=== PATIENT | female | born 1975 | race Caucasian/White ===

== ENCOUNTER 2016-07-12 12:28 | Emergency (ER) | payer OTHER ==
--- NOTE | 2016-07-12 14:30 | ED ORDER SUMMARY ---
..... Patient: SASHA HAWTHORNE OrderSheet [facility] VisitID: [id number] [address] [place] [address] 40y, F Registration Date/Time: 07/12/2016 ORDER SHEET Weight: 83.9 kg (stated) Allergies: Sulfa Antibiotics, Minocycline GENERAL ORDERS: CBC w Diff Urgent (13:11 07/12/2016 Alberto Khan) (13:17 KKnebel R.N.) CMP Urgent (13:07/12/2016 Alberto Khan) (13:17 KKnebel R.N.) UA-Culture if indicated Urgent (13:11 07/12/2016 Alberto Khan) (13:17 DAPHNIEnejackelyn R.N.) Lipase Urgent (13:07/12/2016 Alberto Khan) (13:17 KKnebel R.N.) Pulse oximeter (13:07/12/2016 Alberto Khan) (13:36 KKnebel R.N.) MEDICATION ORDERS: GI Cocktail WHITE PO 30 mL (NOW) (13:57 07/12/2016 Alberto Khan) (14:02 KKnebel R.N.) IV FLUIDS: IV NS : initial bolus 1000 mL (1000 mL/hr), then none - for X1 (NOW) (13:11 07/12/2016 Alberto Khan) (13:44 LWhalen R.N.) ORDER SHEET NOTES: [Electronically signed by Ale Navarrete R.N. (15:31 07/12/2016)] [Electronically signed by Ja Flores Dr. (13:23 07/19/2016)] [Electronically locked/signed by Ale Navarrete R.N. (15:31 07/12/2016)]
--- NOTE | 2016-07-12 14:30 | ED NURSING NOTES ---
Clinical Report - Nurses [facility] [address] [place] [address] 07/12/2016 12:29 Patient: SASHA HAWTHORNE TRIAGE Triage time 12:38 Jul 12 2016. Acuity: LEVEL 3. Chief Complaint: ABDOMINAL PAIN. Alert. No acute distress. SEPSIS SCREEN: Sepsis Screen. Negative (no infection suspected/documented). ELISHA COMA SCORE: [place] Coma Scale: 15- eyes open spontaneously (4); best verbal response- oriented x 4 (5); best motor response- obeys commands (6). --12:44 Ale Navarrete R.N. 12:38 07/12/16. BP: 125/79. HR: 83. RR: 14. O2 saturation: 97%. Temp: 97.5 F. Pain level now: 10. --12:44 Ale Navarrete R.N. 12:38 07/12/16. HR: 83. --13:29 Ale Navarrete R.N. Weight: 83.9 kg stated. Height/Length: 67 inches Per Patient. BMI: 29. --12:42 Ale Navarrete R.N. Medications Proton pump inhibitor. --12:39 Ale Navarrete R.N. Zofran ODT Oral. --12:40 Ale Navarrete R.N. Allergies Sulfa Antibiotics. --12:40 Ale Navarrete R.N. Minocycline. --12:40 Ale Navarrete R.N. History Arrived by private vehicle. Historian: patient. Accompanied by family. This started just prior to arrival. She has had nausea and vomiting. Last oral intake by patient was (about 10 AM). 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 PAST MEDICAL HX: Immunizations: up-to-date. Last normal menstrual period was 1 week ago. Denies current . SOCIAL HX: Never smoker. Occasional alcohol use. No drug use. No recent travel. No infectious disease exposure. No known contact with a sick individual. SELF HARM ASSESSMENT: A self harm assessment was performed. The patient answered "no" to the question "Do you have thoughts of harming or killing yourself?". FALL RISK ASSESSMENT: Fall risk assessment completed. No fall risk identified. NUTRITIONAL RISK ASSESSMENT: The nutritional risk assessment revealed no deficiencies. FUNCTIONAL ASSESSMENT: Functional assessment: no impairments noted. LEARNING NEEDS ASSESSMENT: The learning needs assessment revealed no barriers. ABUSE ASSESSMENT: Abuse assessment: The patient was asked "Do you feel safe in your home?". SKIN INTEGRITY ASSESSMENT: Skin integrity risk assessment completed. No skin integrity risk identified. --12:44 Ale Navarrete R.N. Last oral intake by patient was breakfast. --13:29 Ale Navarrete R.N. PROBLEMS: Abdominal Pain. Vomiting. Gastroesophageal Reflux Disease. Tetanus Status. Laceration. LNMP - Last Normal Menstrual Period. --12:41 Ale Navarrete R.N. ADDITIONAL SURGERIES: Cholecystectomy. . Dilatation & Curettage. Laparoscopy. Faye Fundoplasty. --12:41 Ale Navarrete R.N. Interventions ID and allergy band on patient. To room. --12:44 Ale Navarrete R.N. PHYSICAL ASSESSMENT GENERAL / NEURO / PSYCH: Alert. Oriented X 4. Appears in pain. RESPIRATORY: Respirations not labored. CVS: Capillary refill less than 2 seconds. GI / : Abdomen soft. Abdominal tenderness in the upper abdomen. SKIN: Skin is warm and dry. --12:45 Ale Navarrete R.N. NURSING PROGRESS NOTES Patient gowned. Head of bed elevated. Two patient identifiers checked. Call light placed in reach. Side rails up x 1. Bed placed in lowest position. Brakes of bed on. Patient ready for evaluation- chart flagged. --12:45 Ale Navarrete R.N. 13:01 07/12/2016 Site #1 started via IV in the right antecubital space with an 20g angiocath, with aseptic technique and good blood return; one attempt. Blood drawn: rainbow set. Labeled in the presence of the patient and sent to the lab. Saline lock flushed with 10 mL saline. --13:11 Ale Navarrete R.N. Patient ID band checked for patient name and birthdate: patient confirmed. Instructions provided to collect clean catch urine and patient verbalized understanding. Clean catch urine collected with return of yellow-colored clear urine; sample sent to lab for urinalysis, culture and HCG. Specimen labeled in the presence of the patient. --13:12 Ale Navarrete R.N. 13:39 07/12/2016 Started bag #1 1000 mL IV Fluids IV NS (Saline); at 1000 mL/hr over 1 hour(s) via site #1 via dial-a-flow. Allergies verified and confirmed 5 rights. IV patency established. IV site checked: no pain, redness, or swelling. IV flushed thoroughly pre- and post-medication administration. --13:44 Anabell Weber R.N. 14:02 07/12/2016 GI Cocktail (Magnesium-Aluminum) PO. Allergies verified and confirmed 5 rights. --14:02 Ale Navarrete R.N. DISPOSITION / DISCHARGE 14:49 07/12/2016 Site #1 removed upon discharge. Bandage applied. --14:50 Ale Navarrete R.N. 14:49 07/12/16. BP: 128/80. HR: 75. RR: 12. O2 saturation: 99%. Pain level now: 05/03. --14:50 Ale Navarrete R.N. Departure time: 15:Jul 12 2016. Condition at departure: improved. No learning barriers present. Discharge instructions provided and reviewed with the patient. Reviewed referral to a cold mill inspector. Patient verbalized understanding. Written instructions provided in Swedish. The patient was discharged home and accompanied by spouse. She left the Emergency Department ambulatory and via private vehicle. Spouse driving. --15:31 Ale Navarrete R.N. Locked/Released at 07/12/2016 15:31 by Ale Navarrete R.N.
--- NOTE | 2016-07-12 14:30 | ED CLINICAL REPORT ---
Clinical Report - Physicians/Mid Levels [facility] [address] [place] [address] 07/12/2016 12:29 Patient: SASHA HAWTHORNE Time Seen: 1301. Arrived- By private vehicle. Historian- patient. HISTORY OF PRESENT ILLNESS Chief Complaint: ABDOMINAL PAIN. At its maximum, severity described as moderate. When seen in the E.D., severity described as mild. It is described as burning. No radiation. It is described as located in the epigastric area. This started past week and is still present but is improving. It was gradual in onset and has been intermittent and waxing/waning but is not gone now. The patient has had nausea and vomiting. No loss of appetite or diarrhea. No additional abdominal pain. No recent travel. Similar symptoms previously: Recent medical care: Not recently seen/assessed. REVIEW OF SYSTEMS No constipation, black stools, hematemesis, bloody stools or fever. No chest pain or difficulty breathing. All systems otherwise negative, except as recorded above. PAST HISTORY See nurses notes. SOCIAL HISTORY Never smoker. Occasional alcohol use. (non recently). No drug use. No recent travel. Is a local resident. FAMILY HISTORY No family history of gall bladder problems. ADDITIONAL NOTES The nursing notes have been reviewed. PHYSICAL EXAM Vital Signs: 07/12/2016 12:38 BP: 125/79. HR: 83. RR: 14. O2 saturation: 97%. Temp: 97.5 F. Pain level now: 510. 07/12/2016 12:38 HR: 83. Blood pressure normal. Oxygen saturation normal. Appearance: Alert. Oriented X3. No acute distress. (pleasant, cooperative, polite). Eyes: Pupils equal, round and reactive to light. Eyes normal inspection. No scleral icterus or pale conjunctivae. ENT: Ears normal. Nose normal. Pharynx normal. Neck: Normal inspection. Neck supple. CVS: Normal heart rate and rhythm. Heart sounds normal. Pulses normal. Respiratory: No respiratory distress. Breath sounds normal. Chest nontender. No rales, rhonchi or wheezes. Abdomen: Soft and nontender. Bowel sounds normal. Skin: Skin warm and dry. Normal skin color. No rash. Normal skin turgor. (no jaundince). Extremities: Extremities exhibit normal ROM. No lower extremity edema. Neuro: Oriented X 3. No motor deficit. No sensory deficit. LABS, X-RAYS, AND EKG Laboratory Tests: UA-Culture if indicated: (CORTEZ: 07/12/2016 12:38) ( [facility] 07/12/2016 14:19) Final results Test Result Flag Units (Reference) URINE COLOR YELLOW URINE APPEARANCE CLEAR URINE GLUCOSE NEGATIVE (NEGATIVE) URINE BILIRUBIN NEGATIVE (NEGATIVE) URINE KETONE NEGATIVE (NEGATIVE) URINE SPECIFIC GRAVITY 1.025 (1.010-1.030) URINE PH 5.5 (5.0-8.0) URINE PROTEIN NEGATIVE (NEGATIVE) URINE UROBILINOGEN 0.2 EU/dL (0.2-1.0) URINE NITRITE NEGATIVE (NEGATIVE) URINE BLOOD 1+ (NEGATIVE) URINE LEUK ESTERASE NEGATIVE (NEGATIVE) URINE RBC 3-5 rbc/hpf (0-1) URINE WBC 0-1 wbc/hpf (0-1) URINE EPITHELIAL CELLS 0-1 EPI/hpf (0-5) URINE BACTERIA NONE SEEN (NONE SEEN) URINE COMMENT M URINE CULTURES ARE SET-UP BASED ON THE FOLLOWING CRITERIA:POSITIVE NITRITEPOSITIVE LEUKOCYTE ESTERASEGREATER THAN 10 WHITE BLOOD CELLSMODERATE (2+) OR GREATER BACTERIA CBC w Diff: (CORTEZ: 07/12/2016 12:50) ( [facility] 07/12/2016 13:55) Final results Test Result Flag Units (Reference) WHITE BLOOD COUNT 8.4 K/uL (4.5-11.5) RED BLOOD COUNT 4.70 M/uL (4.00-5.20) HEMOGLOBIN 14.4 gm/dL (12.0-16.0) HEMATOCRIT 42.2 % (36.0-46.0) MEAN CELL VOLUME 90 fL (80-100) MEAN CORPUSCULAR HGB 31 pg (26-34) MEAN CORPUSCULAR HGB CONC 34 g/dL (31-37) RED CELL DISTRIBUTION WIDTH 12.4 % (11.6-14.8) PLATELET COUNT 279 K/uL (150-400) NEUTROPHIL % 64.2 % (50-75) LYMPH % 26.1 % (25-40) MONO % 5.6 % (3-14) EOSINOPHIL % 3.7 % (0-4) BASOPHIL % 0.4 % (0-2) CMP: (CORTEZ: 07/12/2016 12:50) ( MsgRcvd 07/12/2016 14:02) Final results Test Result Flag Units (Reference) GLUCOSE 96 mg/dL (70-110) BUN 11 mg/dL (7-18) CREATININE 0.8 mg/dL (0.6-1.3) Estimated GFR >60 mL/min Estimated GFR- >60 mL/min Note: Persistent reduction over 3 months in eGFR<60 mL/min/1.73 m2 defines CKD. Patients with eGFR values>=60 mL/min/1.73 m2 may also have CKD if evidence ofpersistent proteinuria. Additional information may be foundat www.kidney.org. SODIUM 141 mmol/L (136-145) POTASSIUM 4.0 mmol/L (3.5-5.1) CHLORIDE 105 mmol/L (98-107) CARBON DIOXIDE 27 mmol/L (21-32) CALCIUM 8.7 mg/dL (8.5-10.1) TOTAL PROTEIN 7.4 g/dL (6.4-8.2) ALBUMIN 3.7 g/dL (3.3-5.0) BILIRUBIN, TOTAL 0.7 mg/dL (0.0-1.0) ALKALINE PHOSPHATASE 68 U/L (46-116) AST (SGOT) 28 U/L (15-37) ALT (SGPT) 30 U/L (12-78) LIPASE 138 U/L (73-393) . PROGRESS AND PROCEDURES Course of Care: The patient is a pleasant 40 yo female presenting for evaluation of epigastric abdominal pain. ABdominal exam is benign. Patient also with improved pain symptoms. Because of the burning nature of the pain, would be concerned for gastritis, PUD, or GERD. Patient with no other concerning symptoms at this time. Discussed imaging options with patient including CT or US. Patient was agreeable to labs however after having this discussion, wanted to hold off on any imaging. Reports she is feeling better at this time and would like to wait a little. Patient informed that she is welcomed to change her mind at anytime if her pain changes or worsens. WOrk up noted for the findings above. Patient with no signs of hepatitis, pancreatitis, or UTI. Patient reports feeling much better. She reports no other concerns at this time. Because of her improved pain symptoms, patient declined further work up and states she will follow up with her doctor. Patient continues to be non-toxic and in no acute distress. Repeat exam continues to be benign. Patient without other concerns. Discussed with patient her work up here in the emergency department including diagnosis, home care, follow up, and return precations. All questions answered. The patient expressed understanding of these instructions and was agreeable to them. Just prior to discharge, patient states she stopped taking her antacid medication. Patient recommended to start back on her medication as this could be the reason for her discomfort. Disposition: Discharged. Condition: good. CLINICAL IMPRESSION Acute epigastric abdominal pain of unknown cause. 07/12/2016 12:38 BP: 125/79. HR: 83. RR: 14. O2 saturation: 97%. Temp: 97.5 F. Pain level now: 07/03. 07/12/2016 12:38 HR: 83. Blood pressure normal. Oxygen saturation normal. INSTRUCTIONS Warnings: GENERAL WARNINGS: Return or contact your physician immediately if your condition worsens or changes unexpectedly, if not improving as expected, or if other problems arise. SPECIFICALLY, return if you develop pain, fever, vomiting, the inability to keep fluids down, blood in vomitus, blood in diarrhea, fainting or lightheadedness. Your Current Medications: CONTINUE TAKING THE FOLLOWING MEDICATIONS: Proton pump inhibitor*. Zofran ODT Oral. Follow-up: Return to the emergency department as needed. Follow up with a support architect. Reason for referral: recheck today's concerns as recommended by their office. Summary of care provided to patient via paper. Follow up with your doctor in three days. Reason for referral: recheck today's concerns. Summary of care provided to patient via paper. Screening today revealed the patient's blood pressure to be in the normal range. The patient should follow up with a primary care provider for blood pressure management. Understanding of the discharge instructions verbalized by patient. (Electronically signed by Ja Flores Dr. 07/19/2016 13:23)
--- NOTE | 2016-07-12 14:30 | ED NURSING NOTES ---
Clinical Report - Nurses [facility] [address] [place] [address] 07/12/2016 12:29 Patient: SASHA HAWTHORNE TRIAGE Triage time 12:38 Jul 12 2016. Acuity: LEVEL 3. Chief Complaint: ABDOMINAL PAIN. Alert. No acute distress. SEPSIS SCREEN: Sepsis Screen. Negative (no infection suspected/documented). ELISHA COMA SCORE: [place] Coma Scale: 15- eyes open spontaneously (4); best verbal response- oriented x 4 (5); best motor response- obeys commands (6). --12:44 Ale Navarrete R.N. 12:38 07/12/16. BP: 125/79. HR: 83. RR: 14. O2 saturation: 97%. Temp: 97.5 F. Pain level now: 10. --12:44 Ale Navarrete R.N. 12:38 07/12/16. HR: 83. --13:29 Ale Navarrete R.N. Weight: 83.9 kg stated. Height/Length: 67 inches Per Patient. BMI: 29. --12:42 Ale Navarrete R.N. Medications Proton pump inhibitor. --12:39 Ale Navarrete R.N. Zofran ODT Oral. --12:40 Ale Navarrete R.N. Allergies Sulfa Antibiotics. --12:40 Ale Navarrete R.N. Minocycline. --12:40 Ale Navarrete R.N. History Arrived by private vehicle. Historian: patient. Accompanied by family. This started just prior to arrival. She has had nausea and vomiting. Last oral intake by patient was (about 10 AM). 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 PAST MEDICAL HX: Immunizations: up-to-date. Last normal menstrual period was 1 week ago. Denies current . SOCIAL HX: Never smoker. Occasional alcohol use. No drug use. No recent travel. No infectious disease exposure. No known contact with a sick individual. SELF HARM ASSESSMENT: A self harm assessment was performed. The patient answered "no" to the question "Do you have thoughts of harming or killing yourself?". FALL RISK ASSESSMENT: Fall risk assessment completed. No fall risk identified. NUTRITIONAL RISK ASSESSMENT: The nutritional risk assessment revealed no deficiencies. FUNCTIONAL ASSESSMENT: Functional assessment: no impairments noted. LEARNING NEEDS ASSESSMENT: The learning needs assessment revealed no barriers. ABUSE ASSESSMENT: Abuse assessment: The patient was asked "Do you feel safe in your home?". SKIN INTEGRITY ASSESSMENT: Skin integrity risk assessment completed. No skin integrity risk identified. --12:44 Ale Navarrete R.N. Last oral intake by patient was breakfast. --13:29 Ale Navarrete R.N. PROBLEMS: Abdominal Pain. Vomiting. Gastroesophageal Reflux Disease. Tetanus Status. Laceration. LNMP - Last Normal Menstrual Period. --12:41 Ale Navarrete R.N. ADDITIONAL SURGERIES: Cholecystectomy. . Dilatation & Curettage. Laparoscopy. Faye Fundoplasty. --12:41 Ale Navarrete R.N. Interventions ID and allergy band on patient. To room. --12:44 Ale Navarrete R.N. PHYSICAL ASSESSMENT GENERAL / NEURO / PSYCH: Alert. Oriented X 4. Appears in pain. RESPIRATORY: Respirations not labored. CVS: Capillary refill less than 2 seconds. GI / : Abdomen soft. Abdominal tenderness in the upper abdomen. SKIN: Skin is warm and dry. --12:45 Ale Navarrete R.N. NURSING PROGRESS NOTES Patient gowned. Head of bed elevated. Two patient identifiers checked. Call light placed in reach. Side rails up x 1. Bed placed in lowest position. Brakes of bed on. Patient ready for evaluation- chart flagged. --12:45 Ale Navarrete R.N. 13:01 07/12/2016 Site #1 started via IV in the right antecubital space with an 20g angiocath, with aseptic technique and good blood return; one attempt. Blood drawn: rainbow set. Labeled in the presence of the patient and sent to the lab. Saline lock flushed with 10 mL saline. --13:11 Ale Navarrete R.N. Patient ID band checked for patient name and birthdate: patient confirmed. Instructions provided to collect clean catch urine and patient verbalized understanding. Clean catch urine collected with return of yellow-colored clear urine; sample sent to lab for urinalysis, culture and HCG. Specimen labeled in the presence of the patient. --13:12 Ale Navarrete R.N. 13:39 07/12/2016 Started bag #1 1000 mL IV Fluids IV NS (Saline); at 1000 mL/hr over 1 hour(s) via site #1 via dial-a-flow. Allergies verified and confirmed 5 rights. IV patency established. IV site checked: no pain, redness, or swelling. IV flushed thoroughly pre- and post-medication administration. --13:44 Anabell Weber R.N. 14:02 07/12/2016 GI Cocktail (Magnesium-Aluminum) PO. Allergies verified and confirmed 5 rights. --14:02 Ale Navarrete R.N. DISPOSITION / DISCHARGE 14:49 07/12/2016 Site #1 removed upon discharge. Bandage applied. --14:50 Ale Navarrete R.N. 14:49 07/12/16. BP: 128/80. HR: 75. RR: 12. O2 saturation: 99%. Pain level now: 05/03. --14:50 Ale Navarrete R.N. Departure time: 15:Jul 12 2016. Condition at departure: improved. No learning barriers present. Discharge instructions provided and reviewed with the patient. Reviewed referral to a no experience. Patient verbalized understanding. Written instructions provided in Pashto. The patient was discharged home and accompanied by spouse. She left the Emergency Department ambulatory and via private vehicle. Spouse driving. --15:31 Ale Navarrete R.N. Locked/Released at 07/12/2016 15:31 by Ale Navarrete R.N.
--- NOTE | 2016-07-12 14:30 | ED ORDER SUMMARY ---
..... Patient: SASHA HAWTHORNE OrderSheet [facility] VisitID: [id number] [address] [place] [address] 40y, F Registration Date/Time: 07/12/2016 ORDER SHEET Weight: 83.9 kg (stated) Allergies: Sulfa Antibiotics, Minocycline GENERAL ORDERS: CBC w Diff Urgent (13:11 07/12/2016 Alberto Khan) (13:17 KKnebel R.N.) CMP Urgent (13:07/12/2016 Alberto Khan) (13:17 KKnebel R.N.) UA-Culture if indicated Urgent (13:11 07/12/2016 Alberto Khan) (13:17 DAPHNIEnejackelyn R.N.) Lipase Urgent (13:07/12/2016 Alberto Khan) (13:17 KKnebel R.N.) Pulse oximeter (13:07/12/2016 Alberto Khan) (13:36 KKnebel R.N.) MEDICATION ORDERS: GI Cocktail WHITE PO 30 mL (NOW) (13:57 07/12/2016 Alberto Khan) (14:02 KKnebel R.N.) IV FLUIDS: IV NS : initial bolus 1000 mL (1000 mL/hr), then none - for X1 (NOW) (13:11 07/12/2016 Alberto Khan) (13:44 LWhalen R.N.) ORDER SHEET NOTES: [Electronically signed by Ale Navarrete R.N. (15:31 07/12/2016)] [Electronically signed by Ja Flores Dr. (13:23 07/19/2016)] [Electronically locked/signed by Ale Navarrete R.N. (15:31 07/12/2016)]
--- NOTE | 2016-07-19 13:23 | ED MED RECONCILIATION SUMMARY ---
Patient: SASHA HAWTHORNE Medication Reconciliation Report [facility] VisitID: [id number] [address] [place] [address] 40y, F Registration Date/Time: 07/12/2016 Weight: 83.9 kg Height/Length: 67 in. BMI: 29.0 ALLERGIES: Minocycline, Sulfa Antibiotics The patient's Home Medications are listed below: CONTINUE TAKING THE FOLLOWING MEDICATIONS: Proton pump inhibitor Zofran ODT Oral The source(s) of the original Home Medication information: Not obtained. The following Medications were given to the patient in the Emergency Department: IV NS IV Fluids bolus 0, then 1000 mL/hr, administered: 07/12/2016 1:39:00 PM GI Cocktail [PO] PO, administered: 07/12/2016 2:02:00 PM The following Medications were prescribed to the patient: None.
--- NOTE | 2016-07-19 13:23 | ED MAR SUMMARY ---
..... Medication Administration Record [facility] [address] [place] [address] Patient: SASHA HAWTHORNE Visit ID: [id number] 40y, F Weight: 83.9 kg Height/Length: 67 in BMI: 29 ALLERGIES: Minocycline, Sulfa Antibiotics Start 13:39 07/12/2016 Anabell Weber RShay Medication Administered: IV NS (SALINE), Dose: IV Fluids over 1 hour(s), Rate: 1000 mL/hr, Dispensed: 1000 mL bag, Site: #1 right AC. Medication Ordered: IV NS : initial bolus 1000 mL (1000 mL/hr), then none - for X1 (NOW). Given 14:02 07/12/2016 Ale Navarrete RShay Medication Administered: GI COCKTAIL [PO] (MAGNESIUM-ALUMINUM), Dose: PO. Medication Ordered: GI Cocktail WHITE PO 30 mL (NOW).
--- NOTE | 2016-07-19 13:23 | ED MAR SUMMARY ---
..... Medication Administration Record [facility] [address] [place] [address] Patient: SASHA HAWTHORNE Visit ID: [id number] 40y, F Weight: 83.9 kg Height/Length: 67 in BMI: 29 ALLERGIES: Minocycline, Sulfa Antibiotics Start 13:39 07/12/2016 Anabell Weber RShay Medication Administered: IV NS (SALINE), Dose: IV Fluids over 1 hour(s), Rate: 1000 mL/hr, Dispensed: 1000 mL bag, Site: #1 right AC. Medication Ordered: IV NS : initial bolus 1000 mL (1000 mL/hr), then none - for X1 (NOW). Given 14:02 07/12/2016 Ale Navarrete RShay Medication Administered: GI COCKTAIL [PO] (MAGNESIUM-ALUMINUM), Dose: PO. Medication Ordered: GI Cocktail WHITE PO 30 mL (NOW).
--- NOTE | 2016-07-19 13:23 | ED MED RECONCILIATION SUMMARY ---
Patient: SASHA HAWTHORNE Medication Reconciliation Report [facility] VisitID: [id number] [address] [place] [address] 40y, F Registration Date/Time: 07/12/2016 Weight: 83.9 kg Height/Length: 67 in. BMI: 29.0 ALLERGIES: Minocycline, Sulfa Antibiotics The patient's Home Medications are listed below: CONTINUE TAKING THE FOLLOWING MEDICATIONS: Proton pump inhibitor Zofran ODT Oral The source(s) of the original Home Medication information: Not obtained. The following Medications were given to the patient in the Emergency Department: IV NS IV Fluids bolus 0, then 1000 mL/hr, administered: 07/12/2016 1:39:00 PM GI Cocktail [PO] PO, administered: 07/12/2016 2:02:00 PM The following Medications were prescribed to the patient: None.
--- NOTE | 2016-07-19 13:23 | ED DISCHARGE INSTRUCTIONS ---
Patient: SASHA HAWTHORNE General Instructions [facility] VisitID: [id number] [place] [address] 40y, F Registration Date/Time: 07/12/2016 Acute epigastric abdominal pain of unknown cause. 07/12/2016 12:38 BP: 125/79. HR: 83. RR: 14. O2 saturation: 97%. Temp: 97.5 F. Pain level now: 07/03. 07/12/2016 12:38 HR: 83. Blood pressure normal. Oxygen saturation normal. INSTRUCTIONS Warnings: GENERAL WARNINGS: Return or contact your physician immediately if your condition worsens or changes unexpectedly, if not improving as expected, or if other problems arise. SPECIFICALLY, return if you develop pain, fever, vomiting, the inability to keep fluids down, blood in vomitus, blood in diarrhea, fainting or lightheadedness. Your Current Medications: CONTINUE TAKING THE FOLLOWING MEDICATIONS: Proton pump inhibitor*. Zofran ODT Oral. Follow-up: Return to the emergency department as needed. Follow up with a healthcare insurance sales agent. Reason for referral: recheck today's concerns as recommended by their office. Summary of care provided to patient via paper. Follow up with your doctor in three days. Reason for referral: recheck today's concerns. Summary of care provided to patient via paper. Screening today revealed the patient's blood pressure to be in the normal range. The patient should follow up with a primary care provider for blood pressure management. Understanding of the discharge instructions verbalized by patient. ADDITIONAL INFORMATION Abdominal Pain, Unknown Cause (Female) The exact cause of your abdominal (stomach) pain is not certain. This does not mean that this is something to worry about, or the right tests were not done. Everyone likes to know the exact cause of the problem, but sometimes with abdominal pain, there is no clear-cut cause, and this could be a good thing. The good news is that your symptoms can be treated, and you will feel better. Your condition does not seem serious now; however, sometimes the signs of a serious problem may take more time to appear. For this reason,it is important for you to watch for any new symptoms, problems,or worsening of your condition. Over the next few days, the abdominal pain may come and go, or be continuous. Other common symptoms can include nausea and vomiting. Sometimes it can be difficult to tell if you feel nauseous, you may just feel bad and not associate that feeling with nausea. Constipation, diarrhea, and a fever may go along with the pain. The pain may continue even if treated correctly over the following days. Depending on how things go, sometimes the cause can become clear and may require further or different treatment. Additional evaluations, medications, or tests may be needed. Home care Your health care provider may prescribe medications for pain, symptoms, or an infection. Follow the health care provider's instructions for taking these medications. General care Rest until your next exam. No strenuous activities. Try to find positions that ease discomfort. A small pillow placed on the abdomen may help relieve pain. Something warm on your abdomen (such as a heating pad) may help, but be careful not to burn yourself. Diet Do not force yourself to eat, especially if having cramps, vomiting, or diarrhea. Water is important so you do not get dehydrated. Soup may also be good. Sports drinks may also help, especially if they are not too acidic. Make sure you don't drink sugary drinks as this can make things worse. Take liquids in small amounts. Do not guzzle them. Caffeine sometimes makes the pain and cramping worse. Avoid dairy products if you have vomiting or diarrhea. Don't eat large amounts at a time. Wait a few minutes between bites. Eat a diet low in fiber (called a low-residue diet). Foods allowed include refined breads, white rice, fruit and vegetable juices without pulp, tender meats. These foods will pass more easily through the intestine. Avoid whole-grain foods, whole fruits and vegetables, meats, seeds and nuts, fried or fatty foods, dairy, alcohol and spicy foods until your symptoms go away. Follow-up care Follow up with your health care provider as instructed, or if your pain does not begin to improve in the next 24 hours. When to seek medical care Seek prompt medical care if any of the following occur: Pain gets worse or moves to the right lower abdomen New or worsening vomiting or diarrhea Swelling of the abdomen Unable to pass stool for more than three days Fever of 100.4F (38C) or higher, or as directed by your healthcare provider. Blood in vomit or bowel movements (dark red or black color) Jaundice (yellow color of eyes and skin) Weakness, dizziness Chest, arm, back, neck or jaw pain Unexpected vaginal bleeding or missed period Call 911 Call emergency services if any of the following occur: Trouble breathing Confusion Fainting or loss of consciousness Rapid heart rate Seizure You have been given the following additional information: Abdominal Pain, Unknown Cause, (Female) (Electronically signed by Ja Folres Dr. 07/19/2016 13:23)
== END 2016-07-12 15:05 | disposition home or self-care (01) ==
LOC: ED SRH 12:28
DX: R10.13 Epigastric pain (principal)
CPT/HCPCS: 90004; 90100; 92235; 95059